=== PATIENT | male | born 1970 | race Caucasian/White ===

== ENCOUNTER 2019-02-13 10:44 | Inpatient (IN) | payer OTHER ==
[~2019-02-13] VITALS: Ht 185.4 cm; Wt 91.2 kg
[2019-02-13] VITALS (12 sets, daily range): BP systolic 85–120; BP diastolic 42–101
--- NOTE | 2019-02-13 10:48 | NUR ---
BIB RA [facility],FELL OFF HIS WHEELCHAIR WHILE AT A [facility], TO ER BED 13. HOOKED TO MONITOR, PATIENT NOTED TACHYCARDIC, CHANGED TO HOSP GOWN, NOTED W COLOSTOMY AND NG CATHETER, YELLOW URINE AND CLOUDY IN APPEARANCE. NOTED W WOUND ON L FOOT. PROVIDED W WARM BLANKET. AWAITING MD ATKINSON.
[2019-02-13] MEDS ORDERED: ARIP2TAB3 PO (10:51)
--- NOTE | 2019-02-13 10:54 | NUR ---
DR CHOI AT BEDSIDE
[2019-02-13 11:28] LABS: BASOPHILS # (AUTO) 0.1 /CMM (0.0-0.2); BASOPHILS % (AUTO) 0.2 % (0.0-2.0); HEMATOCRIT 31 % (39-51); HEMOGLOBIN 9.7 g/dL (13.5-17.5); LYMPHOCYTES # (AUTO) 0.4 /CMM (0.8-4.8); LYMPHOCYTES % (AUTO) 1.3 % (20.0-44.0); MEAN CORPUSCULAR HGB CONC 31 g/dl (31.0-36.0); MEAN CORPUSCULAR VOLUME 83 fL (80-96); MONOCYTES # (AUTO) 0.5 /CMM (0.1-1.30); MONOCYTES % (AUTO) 1.7 % (2.0-12.0); NEUTROPHILS # (AUTO) 31.6 /CMM (1.8-8.9); NEUTROPHILS % (AUTO) 96.8 % (43.0-81.0); PLATELET COUNT (AUTO) 430 /CMM (150-450); RED BLOOD CELL COUNT(AUTO) 3.75 MIL/uL (4.5-6.0)
[2019-02-13 11:35] LABS: WHITE BLOOD COUNT (AUTO) 32.7 K/uL (4.3-11.0)
[2019-02-13 11:43] LABS: ALBUMIN 2.2 g/dL (3.4-5.0); BILIRUBIN,DIRECT 0.3 mg/dL (0.0-0.2); BILIRUBIN,TOTAL 0.6 mg/dL (0.2-1.0); CALCIUM, SERUM 8.5 mg/dL (8.5-10.1); CREATININE 3.2 mg/dL (0.6-1.3); TOTAL PROTEIN, SERUM 7.9 g/dL (6.4-8.2)
[2019-02-13] MEDS ORDERED: IV NS 0.9% 1,000 ML BAG IV ONE ×3 (12:00→14:30)
[2019-02-13 12:35] LABS: BAND % (MANUAL) 6 % (0.0-5.0); LYMPHOCYTES % (MANUAL) 1 % (16-48); MONOCYTES % (MANUAL) 2 % (0-11.0); NEUTROPHILS % (MANUAL) 91 (42-76)
[2019-02-13] MEDS ORDERED: CEFTRIAXONE 1GM BAG (ER ONLY) 50 ML IV ONE ×2 (12:46→13:00)
[2019-02-13 13:10] LABS: BILIRUBIN,URINE SMALL (NEGATIVE); BLOOD, URINE Negative Ery/uL (NEGATIVE); KETONES,URINE Negative (NEGATIVE); LEUKOCYTE ESTERASE ,URINE Small (NEGATIVE); NITRITE, URINE Positive (NEGATIVE); PROTEIN,URINE >=300 mg/dl (NEGATIVE); UGLUCOSE Negative (NEGATIVE)
[2019-02-13 13:12] LABS: APPEARANCE,URINE HAZY (CLEAR); PH,URINE >9.0 (5.0-8.0)
[2019-02-13 13:13] LABS: COLOR,URINE AMBER (YELLOW)
[2019-02-13 13:14] LABS: BACTERIA,URINE 1+ /HPF (None Seen); SQUAMOUS EPITHELIAL CELL,UR Rare /HPF (None Seen)
--- NOTE | 2019-02-13 14:42 | NUR ---
REPORT GIVEN TO SAMUEL OF [facility] UNIT
--- NOTE | 2019-02-13 15:00 | NUR ---
OIL WELL FISHING TOOL TECHNICIAN NOTES RECEIVED PATIENT FROM ER, A/OX2 PATIENT IS CONFUSED. SINUS TACHY WITH LEFT FOREARM # 18. ROOM AIR 94-85. PATIENT HAS COLOSTOMY AND NG CATHETER. IV BOLUS GIVEN PER DR AMOR. PATIENT HAS MULTIPLE WOUNDS. PICTURE TAKEN AND IN CHART. PATIENT HAD CIGARETTE IN HAND BUT REFUSED TO HAND IT TO NURSING STATION. AFTER CONVERSATION AND SECURITY CALL, HE AGREED TO HAND IT TO NURSES. BED IN THE LOWEST POSITION LOCKED , CALL LIGHT WITHIN REACH. WILL CONTINUE TO MONITOR.
[2019-02-13] MEDS ORDERED: ACET325C7 PO (15:59)
[2019-02-13] MEDS ORDERED: HYDR-4384 PO (15:59)
[2019-02-13] MEDS ORDERED: FERR325T23 PO (15:59)
[2019-02-13] MEDS ORDERED: QUET100T PO (15:59)
[2019-02-13] MEDS ORDERED: ARGI1POW13 PO (15:59)
[2019-02-13] MEDS ORDERED: ZINC220C6 PO (15:59)
[2019-02-13] MEDS ORDERED: ENOX40DI SQ (15:59)
[2019-02-13] MEDS ORDERED: DOCU-141 PO (15:59)
[2019-02-13] MEDS ORDERED: SENN-168 PO (15:59)
[2019-02-13] MEDS ORDERED: ASCO500T9 PO (15:59)
[2019-02-13] MEDS ORDERED: METO25TA6 PO (15:59)
[2019-02-13] MEDS ORDERED: MAG355OR18 PO (15:59)
--- NOTE | 2019-02-13 16:27 | NUR ---
DISABILITY SERVICES COORDINATOR NOTES RECEIVED CRITICAL LAB OF LACTIC ACID 3.4 FROM LAB AND REPORTED TO DR AMOR.
--- NOTE | 2019-02-13 17:11 | NUR ---
LOFT WORKER PILE DRIVING NOTES PER DR AMOR IVF STARTED ON PATIENT DUE TO SINUS TACHY 161.
[2019-02-13] MEDS ORDERED: Z GUARD REMEDY 2 OZ OINT TP PRN (17:30)
[2019-02-13] MEDS ORDERED: MAGNESIUM HYDROXIDE 30 ML UDC PO PRN (17:30)
[2019-02-13] MEDS ORDERED: ZOLPIDEM TARTRATE 5 MG TABLET PO PRN (17:30)
[2019-02-13] MEDS ORDERED: ONDANSETRON HCL/PF 4 MG/2 ML VIAL IVP PRN (17:30)
[2019-02-13] MEDS ORDERED: FEE PK DOSING 1 MIN EA MC ONE (17:37)
--- NOTE | 2019-02-13 17:45 | NUR ---
EPIC CADENCE ANALYST NOTES PATIENT HAD TEMPERATURE OF 102 , COOLING MEASURE PROVIDED. COOLING BLANKET ORDERED. WILL CONTINUE TO MONITOR.
--- NOTE | 2019-02-13 18:20 | NUR ---
SPOOL SORTER NOTES RECHECKED TEMPERATURE 98.7 F.
[2019-02-13 18:25] LABS: ABG OXYGEN SATURATION 95.6 % (92.0-98.5); ABG PCO2 22.9 mmHg (35.0-45.0); ABG PH 7.446 (7.350-7.450); ABG PO2 84.5 mmHg (75.0-100.0); AaDO2 37.8 mmHg; COHb 0.1 % (0.5-1.5); MetHb 0.5 % (0.0-1.5); SITE, ABG Right Radial; VENT MODE, BG ROOM AIR
[2019-02-13] MEDS: VANCOMYCIN 1 GM in IV D5W 250 ML IV SCH (19:17)
[2019-02-13] MEDS ORDERED: SODIUM BICARBONATE SYR 50 MEQ/50 ML DISP.SYRIN IV ONE (19:30)
--- NOTE | 2019-02-13 19:45 | NUR ---
UNDERWEAR FINISHER NOTES TRANSFERRED PATIENT TO ICU PER DR AMOR ORDER. PATIENT IS A/O X2 CONFUSED, ON ROOM AIR 96% , NO SOB OR DISCOMFORT NOTED AT THIS TIME, PATIENT DENIES ANY PAIN. SINUS TACHYCARDIA 165. REPORT GIVEN TO ICU NURSE FOR MINI.
--- NOTE | 2019-02-13 20:00 | NUR ---
HOLE DIGGER OPERATOR NOTE PATIENT RECEIVED FROM [facility], PATIENT NOTED TO BE ST WITH RVR HR 160, AND BP 99/56. PATIENT DENIES CHEST PAIN OR SOB. PATIENT HAS MINOR FEVER 99.2. COOLING MEASURES AND TYLENOL GIVEN. MD DIAZ NOTIFIED AND ORDERED 5 MG LOPRESSOR IVP X 1 NOW, STAT EKG AND INCREASE FLUIDS TO 150 ML/HR, AND MIDLINE INSERTION. PATIENT HAS RAC 2G PATENT AND INTACT NO S/S OF INFECTION OR INFIL TRATION. PATIENT PLACED IN MODIFIED TRENDELENBERG WITH NC RUNNING 3L/MIN. CALL LIGHT INSTRUCTIONS GIVEN, PATIENT VERBALIZES UNDERSTANDING. PATIENT NG DRAINING TO GRAVITY, CLOUDILY WITH HEAVY SEDIMENT. NG FLUSHED, WITH HEAVY RESISTANCE, NG CHANGED. RN WILL CONTINUE TO MONITOR FOR CHANGES/
[2019-02-13] MEDS: IV NS 0.9% 1,000 ML IV PRN (20:08)
[2019-02-13] MEDS ORDERED: METOPROLOL TARTRATE INJ 5 MG/5 ML AMPUL IVP ONE (20:30)
[2019-02-13] MEDS: ACETAMINOPHEN 325 MG TABLET PO PRN (20:36)
[2019-02-13] MEDS: ZOSYN IVPB 2.25 G in IV D5W 50ml IV SCH (20:37)
--- NOTE | 2019-02-13 22:35 | NUR ---
DRIVER MERCHANDISER NOTE UNABLE TO GIVE LOPRESSOR PER MD ORDER, PATIENT BP TOO LOW SYSTOLIC IN THE 90'S A NS 80'S, RN WILL CONTINUE TO MONITOR. PATIENT DENIES S/S OF CARDIAC DISTRESS. PATIENT DENIES CHEST PAIN, AND SOB
[2019-02-14] VITALS (43 sets, daily range): BP systolic 78–143; BP diastolic 38–117
--- NOTE | 2019-02-14 01:28 | NUR ---
MICROSOFT ACCESS DEVELOPER NOTE PATIENT HR DECREASING TO 130'S ST RN WILL CONTINUE TO MONITOR. PATIENT CONTINUES TO BE ASYMPTOMATIC Addendum: 02/14/19 at 0430 by KOMAL WHEATLEY RN CORNELIO AMOR AWARE OF PATIENTS, BLOOD PRESSURE AND DECREASING HR. ALSO AWARE THAT METOPROLOL HAS NOT BEEN GIVEN DUE TO BLOOD PRESSURE. NO NEW ORDERS GIVEN.
[2019-02-14] MEDS: ZOSYN IVPB 2.25 G in IV D5W 50ml IV SCH ×4 (01:50→20:44)
[2019-02-14] MEDS: IV NS 0.9% 1,000 ML IV PRN ×3 (02:48→21:04)
[2019-02-14 04:33] LABS: BASOPHILS % (AUTO) 0.1 % (0.0-2.0); EOSINOPHILS % (AUTO) 0.3 % (0.0-6.0); HEMATOCRIT 23 % (39-51); HEMOGLOBIN 7.1 g/dL (13.5-17.5); LYMPHOCYTES # (AUTO) 0.4 /CMM (0.8-4.8); LYMPHOCYTES % (AUTO) 1.6 % (20.0-44.0); MEAN CORPUSCULAR HGB CONC 31 g/dl (31.0-36.0); MEAN CORPUSCULAR VOLUME 82 fL (80-96); MONOCYTES # (AUTO) 0.9 /CMM (0.1-1.30); MONOCYTES % (AUTO) 3.8 % (2.0-12.0); NEUTROPHILS # (AUTO) 23.1 /CMM (1.8-8.9); NEUTROPHILS % (AUTO) 94.2 % (43.0-81.0); PLATELET COUNT (AUTO) 243 /CMM (150-450); RED BLOOD CELL COUNT(AUTO) 2.76 MIL/uL (4.5-6.0); WHITE BLOOD COUNT (AUTO) 24.5 K/uL (4.3-11.0)
[2019-02-14 04:53] LABS: CALCIUM, SERUM 7.5 mg/dL (8.5-10.1); CREATININE 2.6 mg/dL (0.6-1.3); MAGNESIUM 1.6 mg/dL (1.8-2.4); PHOSPHORUS 5.6 mg/dL (2.5-4.9); POTASSIUM 3.6 mmol/L (3.5-5.1)
[2019-02-14] MEDS: ACETAMINOPHEN 325 MG TABLET PO PRN ×2 (05:13→12:29)
--- NOTE | 2019-02-14 05:38 | NUR ---
TREAD BUILDER NOTE SPOKE TO JOE REGARDING: PATIENT'S HIGH RISK FOR DVT WITH NO ORDER FOR PROPHYLAXIS, DIET ORDER, PATIENT'S EYES BEING CRUSTED OVER WITH SEDIMENT. PER MD, ORDERED 5000 UNITS OF HEPARIN SUB Q DAILY, CIPROFLOXACIN EYE DROPS BID, REGULAR DIET. MD WAS ALSO AWARE PATIENT DID NOT RECEIVED METOPROLOL IV, HR AT 120'S NOW. NO NEW ORDERS GIVEN.
--- NOTE | 2019-02-14 07:16 | NUR ---
AUTOMOBILE CLUB MEMBERSHIP SALES AGENT NOTE PATIENT REPORT GIVEN TO MOISES PRUITT, PATIENT TOLERATED THE NIGHT WELL CARE GIVEN ORDERED.
--- NOTE | 2019-02-14 08:00 | NUR ---
CABINET BUILDER: pt. is A/Ox2, but unable to follow commands well, on B wrists restraints/tried to removed IVLs over night, no pain, no c/o now, O2sat. 92-94% now on 3L n/c, ST 110-120, SBP over 100, colostomy is intact, H/H 7.03/20, hematuria, got order for Heparin sq, hold and will speak w/MD, GNR blood prelim/will s/w MD, multiple wounds and grafting, got w/c nurse consult, see note
--- NOTE | 2019-02-14 08:20 | NUR ---
WOUND CARE CONSULT: PT PRESENTS WITH MULTIPLE WOUNDS INCLUDING ABDOMINAL WOUND, UNSTAGEABLE SACRAL ULCER WHICH EXTENDS TO BUTTOCKS, RT BUTTOCK STAGE 3 ULCER, LEFT THIGH GRAFT DONOR SITE WOUND, LEFT LOWER EXTREMITY WOUNDS, RT LOWER LEG GRAFT SITE WITH SWELLING, MULTIPLE SCARS AND COLOSTOMY, ALL PRESENT ON ADMISSION. PT ON ERIKA ISOFLEX LOW AIRLOSS BED. ALL SKIN PAROTECTION RECOMMENDATIONS DISCUSSED WITH NURSING STAFF. RECOMMEND SURGICAL AND DPM CONSULTS. DR NAZARIO NOTIFIED OF CONSULT REQUESTS. WILL SEE PRN. BOURNE IN AGREEMENT WITH PLAN OF CARE. Addendum: 02/14/19 at 0823 by TISHA MALIK WNDNU Amended: Links added.
[2019-02-14] MEDS: CIPROFLOXACIN HCL 0.3% 5 ML BOTTLE EACHEYE SCH ×2 (08:43→17:03)
[2019-02-14] MEDS: HEPARIN SODIUM, PORCINE 5000 UNITS/1 ML VIAL SQ SCH ×2 (09:00→21:00)
--- NOTE | 2019-02-14 09:20 | NUR ---
TAX PROFESSIONAL: POWER Liu evaluated wounds, ordered: consent and debridement
[2019-02-14] MEDS ORDERED: SILVER NITRATE APPLICATOR 1 EA BOX TP ONE (09:30)
[2019-02-14] MEDS ORDERED: LIDOCAINE 1%-EPI 1:100,000 20 ML VIAL TP ONE (09:30)
--- NOTE | 2019-02-14 10:00 | NUR ---
EXPERIENCE DESIGNER: updated with pt.current neuro status, VS, ST, Hematuria, H/H 7.03/20, IVF, I/O, meds, labs, Mg 1.6, microbio/lab, wounds/debridement plan, said: hold heparin, ordered Mg 2gmIV, see new orders
--- NOTE | 2019-02-14 11:40 | NUR ---
MASH FILTER OPERATOR: is in room, notified re history, wounds, current pt condition, VS, O2sat., labs, GNR in blood, urine prelim., H/H, hematuria, IVF, I/O, ordered: ABG, 1L NS @250ml/h, then continue same NS IVF rate
[2019-02-14] MEDS ORDERED: IV NS 0.9% 1,000 ML BAG IV ONE (12:00)
[2019-02-14] MEDS: Magnesium 1GM/D5W 100ML PREMIX 100 ML IV SCH ×2 (12:04→13:19)
[2019-02-14 12:26] LABS: ABG OXYGEN SATURATION 97.7 % (92.0-98.5); ABG PCO2 30.2 mmHg (35.0-45.0); ABG PH 7.447 (7.350-7.450); ABG PO2 114.7 mmHg (75.0-100.0); AaDO2 78.1 mmHg; COHb 0.2 % (0.5-1.5); MetHb 0.5 % (0.0-1.5)
--- NOTE | 2019-02-14 14:45 | NUR ---
DIET THERAPIST: ASHLEY Aaron is in room, notified re pt.history, orders, VS, I/O, labs, meds, microbiol.results, hematuria, H/H, wounds, ordered: BCx2, urine drugs screen, CBC
--- NOTE | 2019-02-14 16:15 | NUR ---
CHILDCARE CENTER DIRECTOR: sacral wound debridement done by POWER Liu, pt is tolerated well, all wounds were reevaluated, see new orders
--- NOTE | 2019-02-14 16:26 | NUR ---
learning support services director consult requested to assess family dynamics and living situation. Pt is a 48 year old male admitted to [facility] for sepsis. SW attempted to meet with pt to conduct social media analyst assessment but pt unable to engage in interview due to physical state. SW will follow-up on Sunday.
[2019-02-14 16:47] LABS: BASOPHILS % (AUTO) 0.1 % (0.0-2.0); EOSINOPHILS % (AUTO) 0.6 % (0.0-6.0); HEMATOCRIT 23 % (39-51); HEMOGLOBIN 7.1 g/dL (13.5-17.5); LYMPHOCYTES # (AUTO) 0.3 /CMM (0.8-4.8); MEAN CORPUSCULAR HGB CONC 32 g/dl (31.0-36.0); MEAN CORPUSCULAR VOLUME 81 fL (80-96); MONOCYTES # (AUTO) 0.5 /CMM (0.1-1.30); MONOCYTES % (AUTO) 3.2 % (2.0-12.0); NEUTROPHILS # (AUTO) 13.7 /CMM (1.8-8.9); NEUTROPHILS % (AUTO) 94.1 % (43.0-81.0); PLATELET COUNT (AUTO) 233 /CMM (150-450); RED BLOOD CELL COUNT(AUTO) 2.78 MIL/uL (4.5-6.0); WHITE BLOOD COUNT (AUTO) 14.6 K/uL (4.3-11.0)
--- NOTE | 2019-02-14 17:00 | NUR ---
CASING MACHINE OPERATOR: pt.is A/Ox3, no pain, no c/o, cooperative now, O2sat. over 94%, no SOB, ST 110-120, SBP over 100, still hematuria, little resolved, repeated H/H 7.03/20, got LUI room for pt.
[2019-02-14] MEDS: VANCOMYCIN 1 GM in IV D5W 250 ML IV SCH (17:09)
--- NOTE | 2019-02-14 18:00 | NUR ---
MURAL ARTIST: BG is 153 now. Pt.is transferred to [facility] after full report for EDMOND English included: hold heparin, all wounds S/Tx, waiting POWER Liu orders, drugs screen done: amphetamine+
--- NOTE | 2019-02-14 18:15 | NUR ---
RN NOTES RECEIVED PT FROM ICU , A/Ox2-3, ON 2L O2 N/C , O2 SAT WNL, ON TELE ST HR IN 120'S , COLOSTOMY INTACT, NG DRAINING LIGHT BLOODY URINE, L UPPER ARM MIDLINE AND L FA IV SITES CLEAN, DRY AND INTACT, NS AT 15O CC/HR RUNNING , SR UP x3, BED LOCKED AND IN LOWEST POSITION, WILL ENDORSE TO BRIDGE GAME DIRECTOR NURSE FOR CONTINUITY OF CARE
--- NOTE | 2019-02-14 19:00 | NUR ---
[facility] RN OPENING NOTES RECEIVED PATIENT RESTING IN BED, AWAKE, A/OX3, ON OXYGEN 2L VIA NASAL CANNULA, NO SOB OR RESPIRATORY DISTRESS NOTED. PT NOT C/O OF ANY PAIN AT THE MOMENT. ON TELE MONITOR SINUS TACHY WITH HR IN 120'S, COLOSTOMY INTACT, NG DRAINING LIGHT BLOODY URINE. IV SITES L UPPER ARM MIDLINE AND L FA IV SITES CLEAN, DRY AND INTACT, NS AT 15O CC/HR RUNNING. SAFETY MEASURES IN PLACE; CALL LIGHT WITHIN REACH, SR UP X3, BED LOCKED AND IN LOW POSITION, HOB ELEVATED. WILL CONT TO MONITOR PT CLOSELY.
[2019-02-14] MEDS: MUPIROCIN OINT 2% 22 GM TUBE SCH (20:44)
[2019-02-14] MEDS: DAKINS QUARTER STRENGTH (0.125%) 480 ML BOTTLE TOP SCH (21:03)
[2019-02-15] VITALS (7 sets, daily range): BP systolic 91–128; BP diastolic 49–83
--- NOTE | 2019-02-15 00:10 | NUR ---
[facility] RN NOTES PATIENT TEMP 101.1 VIA ORALLY. WILL ADMINISTER PRN TYLENOL. COOLING MEASURES IN PLACE. WILL CONT TO MONITOR PT.
[2019-02-15] MEDS: ACETAMINOPHEN 325 MG TABLET PO PRN ×3 (00:21→22:33)
--- NOTE | 2019-02-15 01:30 | NUR ---
[facility] RN NOTES RECHECKED PATIENT TEMP STILL ELEVATED 100.1 VIA ORALLY; PATIENT REFUSED ICE PACKS AND STATED "I WILL JUST DRINK COLD WATER" WILL CONT TO MONITOR PT AND MAINTAIN COOLING MEASURES EXCEPT ICE PACKS.
[2019-02-15] MEDS: ZOSYN IVPB 2.25 G in IV D5W 50ml IV SCH ×2 (01:49→09:44)
[2019-02-15] MEDS: IV NS 0.9% 1,000 ML IV PRN ×3 (03:52→18:56)
--- NOTE | 2019-02-15 07:00 | NUR ---
[facility] RN CLOSING NOTES PATIENT RESTING IN BED, AWAKE, A/OX3. LAST TEMP 99.2; COOLING MEASURES MAINTAINED. ON OXYGEN 3L VIA NASAL CANNULA, NO SOB OR RESPIRATORY DISTRESS NOTED. PT NOT C/O OF ANY PAIN AT THE MOMENT. ON TELE MONITOR SINUS TACHY WITH HR IN 100'S. COLOSTOMY INTACT, NG DRAINING LIGHT BLOODY URINE. IV SITES L UPPER ARM MIDLINE AND L FA IV SITES CLEAN, DRY AND INTACT, NS AT 15O ML/HR RUNNING. ALL MD ORDERS ATTENDED, ALL NEEDS ANTICIPATED AND MET. REPOSITIONED PER PROTOCOL. SAFETY MEASURES MAINTAINED. WILL ENDORSE TO AM RN FOR MINI.
--- NOTE | 2019-02-15 07:21 | NUR ---
[facility] RN NOTES CRITICAL LAB PAGED CKMB 21.7; PAGED AUTOPSY ASSISTANT . AWAITING FOR RESPONSE.
--- NOTE | 2019-02-15 07:30 | NUR ---
[facility] RN NOTES Received pt in bed A/O x3. Verbally responsive, able to make needs known. On O2 @3L nasal cannula. In no acute distress. No sob/ wheezing , respiration non labored. SR, HR 72 on tele monitor. Denies chest discomfort. With L Upper Arm midline, NS 150ml infusing well, site clear. See nursing flowsheet for nursing assessment . With regular diet. Colostomy bag in place, vargas cath in place, draining to yellow color urine adequate amount. POC discussed, verbalized understanding . Safety measures in place,call light within reach. Will continue to monitor.
[2019-02-15 07:39] LABS: CALCIUM, SERUM 7.9 mg/dL (8.5-10.1); CREATININE 1.2 mg/dL (0.6-1.3); POTASSIUM 3.4 mmol/L (3.5-5.1)
[2019-02-15 07:41] LABS: BASOPHILS % (AUTO) 0.2 % (0.0-2.0); EOSINOPHILS % (AUTO) 0.9 % (0.0-6.0); HEMATOCRIT 23 % (39-51); HEMOGLOBIN 7.2 g/dL (13.5-17.5); LYMPHOCYTES # (AUTO) 0.3 /CMM (0.8-4.8); LYMPHOCYTES % (AUTO) 2.8 % (20.0-44.0); MEAN CORPUSCULAR HGB CONC 32 g/dl (31.0-36.0); MEAN CORPUSCULAR VOLUME 81 fL (80-96); MONOCYTES # (AUTO) 0.6 /CMM (0.1-1.30); MONOCYTES % (AUTO) 4.6 % (2.0-12.0); NEUTROPHILS # (AUTO) 11.2 /CMM (1.8-8.9); NEUTROPHILS % (AUTO) 91.5 % (43.0-81.0); PLATELET COUNT (AUTO) 222 /CMM (150-450); RED BLOOD CELL COUNT(AUTO) 2.79 MIL/uL (4.5-6.0); WHITE BLOOD COUNT (AUTO) 12.2 K/uL (4.3-11.0)
[2019-02-15] MEDS: HEPARIN SODIUM, PORCINE 5000 UNITS/1 ML VIAL SQ SCH ×2 (09:00→20:08)
--- NOTE | 2019-02-15 09:30 | NUR ---
RN NOTES DUE MEDS GIVEN
[2019-02-15] MEDS: CIPROFLOXACIN HCL 0.3% 5 ML BOTTLE EACHEYE SCH ×2 (09:45→17:10)
[2019-02-15] MEDS: SILVER SULFADIAZINE 50 GM JAR TP SCH (09:45)
[2019-02-15] MEDS: MUPIROCIN OINT 2% 22 GM TUBE SCH ×2 (09:50→20:10)
[2019-02-15] MEDS: DAKINS QUARTER STRENGTH (0.125%) 480 ML BOTTLE TOP SCH (09:54)
[2019-02-15] MEDS ORDERED: POTASSIUM CHLORIDE 20 MEQ TAB.PRT.SR PO SCH (10:00)
[2019-02-15 11:01] LABS: BILIRUBIN,DIRECT 0.1 mg/dL (0.0-0.2); BILIRUBIN,TOTAL 0.3 mg/dL (0.2-1.0)
--- NOTE | 2019-02-15 12:00 | NUR ---
RN NOTES Pt resting in bed, A/O x3. Able to make needs known. Denies any pain or any discomfort. No sob/wheezing noted. vargas cath drained. No bowel movement noted. Had 100% of his lunch trays. Provided snack in between meals per pt's request. Will continue to monitor
[2019-02-15] MEDS: MEROPENEM 1 G in IV NS 0.9% 100 ML IV SCH ×2 (14:09→20:12)
[2019-02-15] MEDS: GUAIFENESIN LA 600 MG TABLET.SA PO SCH ×2 (14:51→20:07)
--- NOTE | 2019-02-15 16:00 | NUR ---
RN NOTES Pt in bed, a/o x3 . No sob noted, denies any pain or discomfort. Noted with high temp 99.5. Pt stated that he is cold, refused cooling measure. Tylenol given. Wound care dressing change. IV line intact and patent. Harrell cath intact with yellow color urine. Colostomy intact with no stool noted. All due meds given and tolerated well. Will continue to monitor
[2019-02-15] MEDS: VANCOMYCIN 1 GM in IV D5W 250 ML IV SCH (18:40)
--- NOTE | 2019-02-15 20:00 | NUR ---
pt on contact isolation mrsa nares precautionary measures observed.
--- NOTE | 2019-02-15 21:55 | NUR ---
[facility] RN NOTES Received pt in bed A/O x3. Verbally responsive, able to make needs known. On O2 @3L nasal cannula. no acute distress. No sob, respiration non labored. ST , HR 106 on tele monitor.sating 100% pt on 3liters of 02via nc. With L Upper Arm midline, NS 150ml infusing well, site clear. With regular diet. Colostomy bag in place, vargas cath in place, draining to pinkish color urine adequate amount. Safety measures in place,call light within reach. Will continue to monitor. temperature of 100.4 cooling measures applied kept pts comfortable.turned and reposition.
[2019-02-16] VITALS: BP 123/69
[2019-02-16] MEDS: VANCOMYCIN 1 GM in IV D5W 250 ML IV SCH ×3 (01:47→17:42)
[2019-02-16] MEDS: IV NS 0.9% 1,000 ML IV PRN ×3 (03:34→21:47)
[2019-02-16 04:00] VITALS: BP 139/80
[2019-02-16] MEDS: MEROPENEM 1 G in IV NS 0.9% 100 ML IV SCH (04:04)
[2019-02-16] MEDS: ACETAMINOPHEN 325 MG TABLET PO PRN ×2 (05:28→13:34)
--- NOTE | 2019-02-16 06:43 | NUR ---
dave rn notes pt in bed awake a/ox4 stable v/s , all needs attended too call light within reach ,kept pt clean dry and comfortable will endorse to rn day shift for continuity of care.
--- NOTE | 2019-02-16 07:30 | NUR ---
RN NOTE: Received patient in bed, awake and verbally responsive. Breathing evenly and unlabored. O2 3L/min via NC was provided. (L) UA midline was noted patent and intact. Patient was noted warm, and he strongly refused to receive cooling measures. Will continue to monitor the patient's temperature and will offer Tylenol for temperature management. Harrell catheter in placed with cloudy yellow urine with some sediments. HOB was slightly elevated. Patient was covered with a flat sheet, and refused bed bath at this time. Colostomy bag in placed with yellow soft stool noted. Call light within reach. Needs anticipated.
[2019-02-16 07:54] LABS: BASOPHILS % (AUTO) 0.3 % (0.0-2.0); EOSINOPHILS % (AUTO) 3.1 % (0.0-6.0); HEMATOCRIT 24 % (39-51); HEMOGLOBIN 7.7 g/dL (13.5-17.5); LYMPHOCYTES # (AUTO) 0.6 /CMM (0.8-4.8); MEAN CORPUSCULAR HGB CONC 32 g/dl (31.0-36.0); MEAN CORPUSCULAR VOLUME 81 fL (80-96); MONOCYTES # (AUTO) 1.1 /CMM (0.1-1.30); MONOCYTES % (AUTO) 8.6 % (2.0-12.0); NEUTROPHILS # (AUTO) 10.6 /CMM (1.8-8.9); PLATELET COUNT (AUTO) 223 /CMM (150-450); RED BLOOD CELL COUNT(AUTO) 2.96 MIL/uL (4.5-6.0); WHITE BLOOD COUNT (AUTO) 12.7 K/uL (4.3-11.0)
[2019-02-16 08:00] VITALS: BP 131/70
[2019-02-16 08:02] LABS: CALCIUM, SERUM 7.9 mg/dL (8.5-10.1); CREATININE 0.9 mg/dL (0.6-1.3); MAGNESIUM 1.4 mg/dL (1.8-2.4); POTASSIUM 3.8 mmol/L (3.5-5.1)
[2019-02-16] MEDS: DAKINS QUARTER STRENGTH (0.125%) 480 ML BOTTLE TOP SCH (09:26)
[2019-02-16] MEDS: SILVER SULFADIAZINE 50 GM JAR TP SCH (09:27)
[2019-02-16] MEDS: MUPIROCIN OINT 2% 22 GM TUBE SCH ×2 (09:27→21:58)
[2019-02-16] MEDS ORDERED: K PHOS NEUTRAL 250 MG TABLET PO ONE (09:30)
[2019-02-16] MEDS: CIPROFLOXACIN HCL 0.3% 5 ML BOTTLE EACHEYE SCH ×2 (09:32→17:41)
[2019-02-16] MEDS: GUAIFENESIN LA 600 MG TABLET.SA PO SCH ×2 (09:32→21:48)
[2019-02-16] MEDS: Magnesium 1GM/D5W 100ML PREMIX 100 ML IV SCH ×4 (09:33→13:10)
[2019-02-16] MEDS: HEPARIN SODIUM, PORCINE 5000 UNITS/1 ML VIAL SQ SCH ×2 (09:36→21:50)
[2019-02-16 12:00] VITALS: BP 130/77
[2019-02-16] MEDS ORDERED: MEROPENEM 1 G in IV NS 0.9% 100 ML IV SCH (13:00)
[2019-02-16 16:00] VITALS: BP 137/70
--- NOTE | 2019-02-16 16:00 | NUR ---
RN NOTE: Patient's temperature was elevated again 101.2F and explained to the patient and encouraged him the importance of getting a bed bath and the cooling measures. Patient started making a fuzz and upon wiping the patient's armpit he grabbed the wash cloth and threw it towards the RN. Security was called and patient was cooperative the whole bed bath time. Patient refused to get his temperature again. But he was informed that his temperature was elevated. Prudence Leung NP was made aware of it, and his last Tylenol administration. Will continue to monitor the patient's temperature.
--- NOTE | 2019-02-16 19:20 | NUR ---
RN NOTE: Patient refused to eat lunch and dinner, but the dinner tray was kept at the bedside in case the patient decides to eat late for tonight. Bedside report was given to pm shift nurse for continuity of care. Endorsed to monitor the patient's temperature.
[2019-02-16 20:00] VITALS: BP 125/71
--- NOTE | 2019-02-16 20:00 | NUR ---
[facility] RN NOTES Received pt in bed A/O x3.On O2 @3L nasal cannula. no acute distress. No sob, respiration non labored. ST , HR 109 on tele monitor. With L Upper Arm midline, NS 150ml infusing well, site clear. With regular diet. Colostomy bag in place, Harrell cath in place, draining urine ON GRAVITY .Safety measures in place,call light within reach. Will continue to monitor.
[2019-02-16] MEDS ORDERED: PIPERACILLIN /TAZOBACTAM 2.25 G VIAL IV ONE (22:08)
[2019-02-16] MEDS: ZOSYN IVPB 2.25 G in IV D5W 50ml IV SCH (22:38)
[2019-02-17] VITALS (7 sets, daily range): BP systolic 120–139; BP diastolic 68–85
[2019-02-17] MEDS: ACETAMINOPHEN 325 MG TABLET PO PRN ×2 (00:09→15:28)
[2019-02-17] MEDS: VANCOMYCIN 1 GM in IV D5W 250 ML IV SCH ×2 (03:59→10:00)
[2019-02-17] MEDS ORDERED: PIPERACILLIN /TAZOBACTAM 2.25 G VIAL IV ONE (04:11)
[2019-02-17] MEDS: ZOSYN IVPB 2.25 G in IV D5W 50ml IV SCH (04:50)
[2019-02-17 07:15] LABS: BASOPHILS % (AUTO) 0.4 % (0.0-2.0); EOSINOPHILS % (AUTO) 3.8 % (0.0-6.0); HEMATOCRIT 23 % (39-51); HEMOGLOBIN 7.1 g/dL (13.5-17.5); LYMPHOCYTES # (AUTO) 0.9 /CMM (0.8-4.8); LYMPHOCYTES % (AUTO) 9.1 % (20.0-44.0); MEAN CORPUSCULAR HGB CONC 32 g/dl (31.0-36.0); MEAN CORPUSCULAR VOLUME 81 fL (80-96); MONOCYTES # (AUTO) 1.1 /CMM (0.1-1.30); MONOCYTES % (AUTO) 10.6 % (2.0-12.0); NEUTROPHILS # (AUTO) 7.9 /CMM (1.8-8.9); NEUTROPHILS % (AUTO) 76.1 % (43.0-81.0); PLATELET COUNT (AUTO) 224 /CMM (150-450); RED BLOOD CELL COUNT(AUTO) 2.76 MIL/uL (4.5-6.0); WHITE BLOOD COUNT (AUTO) 10.4 K/uL (4.3-11.0)
[2019-02-17] MEDS: IV NS 0.9% 1,000 ML IV PRN ×3 (07:16→22:34)
--- NOTE | 2019-02-17 07:17 | NUR ---
RN NOTES RECEIVED PT ON BED , A/Ox4, ON RA, NO SOB NOTED, O2 SAT WNL, ON TELE SR HR IN 90'S , NG DRINING TO GRAVITY, L UPPER ARM MIDLINE SITE CLEAN, DRY AND INTACT WITH NS AT 150CC /HR RUNNING , SR UP X3, BED LOCKED AND IN LOWEST POSITION, CONTINUE TO MONITOR
[2019-02-17 07:48] LABS: CALCIUM, SERUM 7.9 mg/dL (8.5-10.1); CREATININE 0.8 mg/dL (0.6-1.3); MAGNESIUM 1.6 mg/dL (1.8-2.4); PHOSPHORUS 2.5 mg/dL (2.5-4.9); POTASSIUM 3.8 mmol/L (3.5-5.1)
[2019-02-17] MEDS: GUAIFENESIN LA 600 MG TABLET.SA PO SCH ×2 (08:11→21:21)
[2019-02-17] MEDS: HEPARIN SODIUM, PORCINE 5000 UNITS/1 ML VIAL SQ SCH ×2 (08:12→21:22)
[2019-02-17] MEDS: DAKINS QUARTER STRENGTH (0.125%) 480 ML BOTTLE TOP SCH (08:14)
[2019-02-17] MEDS: SILVER SULFADIAZINE 50 GM JAR TP SCH (08:15)
[2019-02-17] MEDS: MUPIROCIN OINT 2% 22 GM TUBE SCH ×2 (08:15→21:23)
[2019-02-17] MEDS: CIPROFLOXACIN HCL 0.3% 5 ML BOTTLE EACHEYE SCH ×2 (08:18→16:24)
[2019-02-17] MEDS: PIPERACILLIN /TAZOBACTAM 3.375 G in IV D5W 100 ML IV SCH ×2 (10:02→18:01)
[2019-02-17] MEDS ORDERED: ZOSYN IVPB 3.375 G in IV D5W 50ml IV SCH (12:00)
--- NOTE | 2019-02-17 12:00 | NUR ---
RN NOTES PT SON CONTINUE TO MONITOR .
[2019-02-17] MEDS: Magnesium 1GM/D5W 100ML PREMIX 100 ML IV SCH ×2 (12:09→13:13)
[2019-02-17 13:06] LABS: HIV SCRN 4G wRFX Non Reactive (Non Reactive)
[2019-02-17] MEDS ORDERED: VANCOMYCIN 0.75 GM in IV D5W 250 ML IV SCH (18:00)
--- NOTE | 2019-02-17 18:28 | NUR ---
RN NOTES NO SIGNIFICANT CHANGES NOTED ON THIS SHIFT, WILL ENDORSE TO ASP WEB DEVELOPER NURSE FOR CONTINUITY OF CARE .
--- NOTE | 2019-02-17 20:00 | NUR ---
MS RN NOTE PT IN BED ASLEEP, EASILY AROUSABLE. A/O X 4, NO SOB, NO DISTRESS OR DISCOMFORT NOTED. DENIES PAIN. F/C INTACT AND PATENT DRAINING YELLOWISH COLOR URINE. COLOSTOMY INTACT AND PATENT. IVF NS INFUSING AT ANURAG MIDLINE 150 ML/HR, NO S/S OF INFILTRATION NOTED. LFA #20 G SL INTACT AND PATENT. REPOSITION HIM FOR SKIN MANAGEMENT. SIDE RAILS UP X 3 AND CALL LIGHT WITHIN REACH. VSS. CONTINUE TO MONITOR HIM.
[2019-02-18] MEDS: PIPERACILLIN /TAZOBACTAM 3.375 G in IV D5W 100 ML IV SCH ×3 (03:11→18:36)
[2019-02-18 05:00] VITALS: BP 144/81
[2019-02-18] MEDS: IV NS 0.9% 1,000 ML IV PRN (06:06)
--- NOTE | 2019-02-18 06:17 | NUR ---
MS RN NOTE PT IN BED ASLEEP, AROUSABLE. NO DISTRESS OR DISCOMFORT NOTED. DENIES PAIN. IVF INFUSING WELL, NO S/S OF INFILTRATION NOTED. REPOSITION HIM Q2H, KEPT HIM DRY AND CLEAN. F/C INTACT AND PATENT DRAINING WELL YELLOWISH COLOR URINE. COLOSTOMY INTACT AND PATENT DRAINING SOFT BROWN STOOL. SIDE RAILS X 3 AND CALL LIGHT WITHIN REACH. WILL ENDORSE TO DAY SHIFT NURSE FOR CONTINNUE TO CARE.
[2019-02-18 07:40] LABS: BASOPHILS % (AUTO) 0.5 % (0.0-2.0); EOSINOPHILS % (AUTO) 5.1 % (0.0-6.0); HEMATOCRIT 24 % (39-51); HEMOGLOBIN 7.5 g/dL (13.5-17.5); LYMPHOCYTES # (AUTO) 1.1 /CMM (0.8-4.8); MEAN CORPUSCULAR HGB CONC 32 g/dl (31.0-36.0); MEAN CORPUSCULAR VOLUME 81 fL (80-96); MONOCYTES # (AUTO) 1.1 /CMM (0.1-1.30); MONOCYTES % (AUTO) 11.7 % (2.0-12.0); NEUTROPHILS # (AUTO) 6.5 /CMM (1.8-8.9); NEUTROPHILS % (AUTO) 70.7 % (43.0-81.0); PLATELET COUNT (AUTO) 275 /CMM (150-450); RED BLOOD CELL COUNT(AUTO) 2.91 MIL/uL (4.5-6.0); WHITE BLOOD COUNT (AUTO) 9.2 K/uL (4.3-11.0)
[2019-02-18 07:51] LABS: CALCIUM, SERUM 8.2 mg/dL (8.5-10.1); CREATININE 0.7 mg/dL (0.6-1.3); MAGNESIUM 1.5 mg/dL (1.8-2.4); PHOSPHORUS 3.3 mg/dL (2.5-4.9); POTASSIUM 4.3 mmol/L (3.5-5.1)
[2019-02-18 08:00] VITALS: BP 143/86
[2019-02-18] MEDS: GUAIFENESIN LA 600 MG TABLET.SA PO SCH ×2 (09:08→20:54)
[2019-02-18] MEDS: ACETAMINOPHEN 325 MG TABLET PO PRN ×2 (09:08→15:36)
[2019-02-18] MEDS: CIPROFLOXACIN HCL 0.3% 5 ML BOTTLE EACHEYE SCH ×2 (09:09→17:56)
[2019-02-18] MEDS: SILVER SULFADIAZINE 50 GM JAR TP SCH (09:10)
[2019-02-18] MEDS: DAKINS QUARTER STRENGTH (0.125%) 480 ML BOTTLE TOP SCH (09:10)
[2019-02-18] MEDS: MUPIROCIN OINT 2% 22 GM TUBE SCH ×2 (09:11→21:00)
[2019-02-18] MEDS: Magnesium 1GM/D5W 100ML PREMIX 100 ML IV SCH ×2 (09:55→11:03)
[2019-02-18] MEDS: HEPARIN SODIUM, PORCINE 5000 UNITS/1 ML VIAL SQ SCH ×2 (09:58→20:48)
[2019-02-18 16:00] VITALS: BP 142/84
[2019-02-18 20:00] VITALS: BP 114/63
--- NOTE | 2019-02-18 20:00 | NUR ---
RN NOTE: RECEIVED PATIENT IN BED, ASLEEP, BUT EASILY AROUSABLE. NO RESPIRATORY DISTRESS. NO C/O PAIN AT THIS TIME. COLOSTOMY BAG INTACT AND DRAINING SOFT BROWN STOOLS. NG INTACT, OFF THE FLOOR, AND DRAINING CLEAR YELLOW URINE. TURN AND REPOSITION PER PROTOCOL. ANURAG MIDLINE INTACT, PATENT, AND FLUSHING WELL. ALL NEEDS WILL BE ATTENDED TO. CALL LIGHT PLACED WITHIN REACH. WILL CONT. TO MONITOR.
--- NOTE | 2019-02-18 20:40 | NUR ---
RN NOTE: CALLED PHARMACY, SPOKE WITH LUCIANO REGARDING HEPARIN. PTT IS 37.7. PER PHARMACIST, OK TO GIVE BECAUSE SUBCUTANEOUS HEPARIN DOES NOT AFFECT PTT MUCH. Addendum: 02/18/19 at 2049 by MARILOU BARDALES RN NO ACTIVE BLEEDING NOTED AT THIS TIME.
[2019-02-18 21:00] VITALS: BP 114/63
--- NOTE | 2019-02-19 01:51 | NUR ---
RN NOTE: SPUTUM COLLECTED. CALLED LAB FOR AIRPORT DUTY MANAGER.
[2019-02-19] MEDS: PIPERACILLIN /TAZOBACTAM 3.375 G in IV D5W 100 ML IV SCH ×3 (02:24→19:09)
[2019-02-19 04:00] VITALS: BP 138/86
--- NOTE | 2019-02-19 07:00 | NUR ---
RN CLOSING NOTES: BEDSIDE REPORT GIVEN TO AM SHIFT NURSE. PATIENT IN BED, ASLEEP, BUT EASILY AROUSABLE. NO RESPIRATORY DISTRESS. NO C/O PAIN AT THIS TIME. SAFETY PRECAUTIONS IMPLEMENTED. BED LOCKED, ALARM ON, AND IN LOWEST POSITION. AFEBRILE AND IN STABLE CONDITION DURING SHIFT. CALL LIGHT PLACED WITHIN REACH. ENDORSED TO AM SHIFT NURSE FOR CONTINUITY OF CARE.
[2019-02-19 07:01] LABS: CALCIUM, SERUM 8.4 mg/dL (8.5-10.1); CREATININE 0.8 mg/dL (0.6-1.3); MAGNESIUM 1.5 mg/dL (1.8-2.4); POTASSIUM 4.2 mmol/L (3.5-5.1)
[2019-02-19 08:00] VITALS: BP 125/65
[2019-02-19] MEDS: GUAIFENESIN LA 600 MG TABLET.SA PO SCH ×2 (08:42→20:51)
[2019-02-19] MEDS: MUPIROCIN OINT 2% 22 GM TUBE SCH ×2 (08:42→20:58)
[2019-02-19] MEDS: DAKINS QUARTER STRENGTH (0.125%) 480 ML BOTTLE TOP SCH (08:43)
[2019-02-19] MEDS: SILVER SULFADIAZINE 50 GM JAR TP SCH (08:43)
[2019-02-19] MEDS: CIPROFLOXACIN HCL 0.3% 5 ML BOTTLE EACHEYE SCH ×2 (08:44→16:34)
[2019-02-19] MEDS: HEPARIN SODIUM, PORCINE 5000 UNITS/1 ML VIAL SQ SCH ×2 (08:46→20:52)
[2019-02-19] MEDS: Magnesium 1GM/D5W 100ML PREMIX 100 ML IV SCH ×2 (09:39→10:40)
[2019-02-19 16:00] VITALS: BP 111/70
--- NOTE | 2019-02-19 19:25 | NUR ---
MS/RN CLOSING NOTES PATIENT CONTINUES TO REMAIN IN STABLE CONDITION THROUGHOUT THE SHIFT. PROVIDED COMFORT AND SAFETY. PATIENT WAS ABLE TO TOLERATE MEALS AND MEDS WELL. IV ACCESS INTACT ON ANURAG. FLUSHING WELL. NO S/S OF INFECTION OR INFILTRATION. ALL NEEDS ANTICIPATED. CALL LIGHT WITHIN REACHED. BED LOCKED AND IN LOWEST POSITION. SAFETY MAINTAINED. WILL CONTINUE TO MONITOR CLOSELY. ENDORSED TO PM NURSE FOR MINI.
[2019-02-19 20:00] VITALS: BP 134/83
--- NOTE | 2019-02-19 20:00 | NUR ---
ms RN NOTES Received pt in bed A/O x3. Verbally responsive, able to make needs known. On r/a . no acute distress. No sob, respiration non labored. .sating 100% With L Upper Arm midlinel, site clear. With regular diet. Colostomy bag in place, vargas cath in place, draining to yellowish color urine adequate amount. Safety measures in place,call light within reach. Will continue to monitor. v/s stable and afebrile .kept pts comfortable.turned and reposition.on contact isolation mrsa nares and wound ,precautionary measures observed due meds given as order all needs attended too , will continue to monitor pts.
--- NOTE | 2019-02-19 23:00 | NUR ---
MS RN NOTES PTS ACCIDENTALLY PULLED OUT THE MIDLINE .ON LEFT UA , NO BLEEDING NOTED , LEFT AC g18 INSERTED AND SECURED , DRESSING DRY AND CLEAN . WILL CONTINUE TO MONITOR PTS.
[2019-02-20] MEDS: PIPERACILLIN /TAZOBACTAM 3.375 G in IV D5W 100 ML IV SCH ×2 (02:12→11:33)
[2019-02-20 04:00] VITALS: BP 136/80
[2019-02-20 06:55] LABS: BASOPHILS # (AUTO) 0.1 /CMM (0.0-0.2); BASOPHILS % (AUTO) 0.5 % (0.0-2.0); HEMATOCRIT 25 % (39-51); LYMPHOCYTES # (AUTO) 1.4 /CMM (0.8-4.8); LYMPHOCYTES % (AUTO) 12.7 % (20.0-44.0); MEAN CORPUSCULAR HGB CONC 32 g/dl (31.0-36.0); MEAN CORPUSCULAR VOLUME 80 fL (80-96); MONOCYTES % (AUTO) 8.7 % (2.0-12.0); NEUTROPHILS # (AUTO) 8.1 /CMM (1.8-8.9); NEUTROPHILS % (AUTO) 74.1 % (43.0-81.0); PLATELET COUNT (AUTO) 363 /CMM (150-450); RED BLOOD CELL COUNT(AUTO) 3.11 MIL/uL (4.5-6.0)
[2019-02-20 07:37] LABS: ALBUMIN 1.7 g/dL (3.4-5.0); BILIRUBIN,TOTAL 0.2 mg/dL (0.2-1.0); CALCIUM, SERUM 8.4 mg/dL (8.5-10.1); CREATININE 0.8 mg/dL (0.6-1.3); MAGNESIUM 1.6 mg/dL (1.8-2.4); POTASSIUM 4.4 mmol/L (3.5-5.1); TOTAL PROTEIN, SERUM 6.6 g/dL (6.4-8.2)
--- NOTE | 2019-02-20 07:58 | NUR ---
MS RN NOTES PATIENT IN BED A/O X4 ABLE TO COMMUNICATE. ON ISOLATION. ROOM AIR 100%. NO SOB OR DISCOMFORT NOTED AT THIS TIME. LEFT AC SALINE LOCK PATENT. CALL LIGHT WITHIN REACH, BED AT THE LOWEST POSITION LOCKED. WILL CONTINUE TO MONITOR.
[2019-02-20 08:00] VITALS: BP 145/83
[2019-02-20] MEDS: GUAIFENESIN LA 600 MG TABLET.SA PO SCH (08:43)
[2019-02-20] MEDS: HEPARIN SODIUM, PORCINE 5000 UNITS/1 ML VIAL SQ SCH (08:44)
[2019-02-20] MEDS: CIPROFLOXACIN HCL 0.3% 5 ML BOTTLE EACHEYE SCH (08:49)
[2019-02-20] MEDS: MUPIROCIN OINT 2% 22 GM TUBE SCH (08:52)
[2019-02-20] MEDS: SILVER SULFADIAZINE 50 GM JAR TP SCH (08:55)
[2019-02-20] MEDS: DAKINS QUARTER STRENGTH (0.125%) 480 ML BOTTLE TOP SCH (08:55)
[2019-02-20] MEDS: Magnesium 1GM/D5W 100ML PREMIX 100 ML IV SCH ×2 (10:34→11:37)
[2019-02-20] MEDS ORDERED: CIPR5DRO18 EACHEYE (11:48)
[2019-02-20] MEDS ORDERED: PIPE3.379 IV (11:48)
[2019-02-20] MEDS ORDERED: Silver Sulfadiazine TP (11:48)
[2019-02-20] MEDS ORDERED: SODI473S8 TOP (11:48)
[2019-02-20] MEDS ORDERED: MUPI22OI7 (11:48)
[2019-02-20] MEDS ORDERED: VANC1VIA XX (11:48)
[2019-02-20 12:00] VITALS: BP 145/83
--- NOTE | 2019-02-20 18:30 | NUR ---
MS RN NOTES PATIENT SAFELY TRANSFERRED TO [facility] TO ROOM 37B BY AMBULANCE . PATIENT A/OX 4, STABLE NO SOB OR DISCOMFORT NOTED AT THIS TIME.REPORT GIVEN TO JOSIAH PRUITT. ALL NEEDS ATTENDED. WOUND CARE PROVIDED, PICTURES TAKEN AND PLACED IN CHART. IV PATENT FLUSHED WITH NORMAL SALINE.
== END 2019-02-20 18:10 | DRG 710 ==
LOC: ER 10:47 → MEDSG1 14:17 → TELE-TD 15:57 → ICU 19:46 → TELE-TD 02-14 18:02 → MEDSG1 02-17 20:31
PROVIDERS: ADMIT Nurse Practitioner Acute Care; ATTEND Nurse Practitioner Acute Care
PROC: 05HA33Z Insertion of Infusion Device into Left Brachial Vein, Percutaneous Approach (ICD-10-PCS; 2019-02-13)
PROC: 0QB10ZZ Excision of Sacrum, Open Approach (ICD-10-PCS; principal; 2019-02-14)
DX: A41.9 Sepsis, unspecified organism (principal); N17.0 Acute kidney failure with tubular necrosis; G92 Toxic encephalopathy; L89.154 Pressure ulcer of sacral region, stage 4; D68.59 Other primary thrombophilia; E87.2 Acidosis; E83.42 Hypomagnesemia; L89.324 Pressure ulcer of left buttock, stage 4; L89.314 Pressure ulcer of right buttock, stage 4; G82.20 Paraplegia, unspecified; R65.20 Severe sepsis without septic shock; N39.0 Urinary tract infection, site not specified; F32.9 Major depressive disorder, single episode, unspecified; M62.82 Rhabdomyolysis; Z93.3 Colostomy status; D50.0 Iron deficiency anemia secondary to blood loss (chronic); F17.200 Nicotine dependence, unspecified, uncomplicated; N31.9 Neuromuscular dysfunction of bladder, unspecified; Z87.01 Personal history of pneumonia (recurrent); Z79.899 Other long term (current) drug therapy; D63.8 Anemia in other chronic diseases classified elsewhere; B96.4 Proteus (mirabilis) (morganii) as the cause of diseases classified elsewhere; E16.2 Hypoglycemia, unspecified; F84.0 Autistic disorder; N10 Acute pyelonephritis; Z22.322 Carrier or suspected carrier of Methicillin resistant Staphylococcus aureus; W05.0XXA Fall from non-moving wheelchair, initial encounter; Y92.009 Unspecified place in unspecified non-institutional (private) residence as the place of occurrence of the external cause
CPT/HCPCS: 36415; 36600; 71045-TC; 80048-TC; 80053-TC; 80061-TC; 80076-TC; 80202-TC; 80305; 81000-TC; 82247-TC; 82248-TC; 82550-TC; 82565-TC; 82962-TC; 83605-TC; 83735-TC; 84100-TC; 84484-TC; 85025-TC; 85730-TC; 86803; 87040-TC; 87070-TC; 87081-TC; 87086-TC; 87186-TC; 97530-TC; A4362; A6253; A6403; A6407; G0378; J0696; J1644; J2185; J2543; J3370; J3475; J3490; J7030; J7050; J7060